=== PATIENT | male | born 1970 | race Caucasian/White ===

== ENCOUNTER 2020-02-08 14:39 | Inpatient (IN) | payer OTHER ==
--- NOTE | 2020-02-08 15:32 | Event Note ---
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 Previously when he was taking diuretics he reports having some hypokalemia and so he was evaluated again yesterday for hypokalemia due to him starting this new diagnosis and he was advised today that his potassium was critical at 2.4 This initial assessment/diagnostic orders/clinical plan/treatment(s) is/are subject to change based on patients health status, clinical progression and re- assessment by fellow clinical providers in the ED. Further treatment and workup at subsequent clinical providers discretion. Patient/guardian urged not to elope from the ED as their condition may be serious if not clinically assessed and managed. Initial orders include:
[2020-02-08 17:09] LABS: BUN/Creatinine Ratio 23; Blood Urea Nitrogen 18 mg/dL (9-20); Calcium 10.2 mg/dL (8.4-10.2); Hemolysis Index 6
[2020-02-08] MEDS ORDERED: POTASSIUM CHLORIDE ER 20 MEQ TAB PO ONE ×2 (17:41→23:41)
--- NOTE | 2020-02-08 17:48 | Emergency Department Report ---
ED General Adult HPI - General Chief complaint: Recheck/Abnormal Lab/Rx Stated complaint: LOW POTASSIUM Time Seen by Provider: 02/08/20 17:34 Source: patient Mode of arrival: Ambulatory Limitations: No Limitations - History of Present Illness Initial comments: Patient is 49 years old male with history of hypertension. Patient received a call from his primary care physician stating that his potassium is 2.4 and he asked him to come to the ER. Patient currently denying any symptoms. Patient stated that he was taking amlodipine 5 mg and losartan however his primary doctor changed his losartan to losartan with chlorothiazide. Patient currently denying any chest pain or shortness of breath. No weakness numbness or tingling sensation. Severity scale (0 -10): 0 - Related Data Previous Rx's Medication Instructions Recorded Last Taken Type amLODIPine 5 mg PO DAILY #30 tab 12/22/19 Unknown Rx Allergies Allergy/AdvReac Type Severity Reaction Status Date / Time No Known Allergies Allergy Unverified 12/22/19 04:07 ED Review of Systems ROS: Stated complaint: LOW POTASSIUM Other details as noted in HPI Comment: All other systems reviewed and negative Constitutional: denies: chills, fever Respiratory: denies: cough, shortness of breath, SOB with exertion Cardiovascular: denies: chest pain, palpitations Gastrointestinal: denies: abdominal pain, nausea, vomiting, diarrhea, constipation, hematemesis, melena, hematochezia Musculoskeletal: denies: back pain Neurological: denies: headache, weakness, numbness, paresthesias, confusion, abnormal gait ED Past Medical Hx - Past Medical History Previous Medical History?: No Hx Hypertension: Yes - Social History Smoking Status: Never Smoker Substance Use Type: None - Medications Home Medications: Home Medications Medication Instructions Recorded Confirmed Last Taken Type amLODIPine 5 mg PO DAILY #30 tab 12/22/19 Unknown Rx ED Physical Exam - General Limitations: No Limitations General appearance: alert, in no apparent distress - Head Head exam: Present: atraumatic, normocephalic, normal inspection - Eye Eye exam: Present: normal appearance, PERRL - ENT ENT exam: Present: normal exam, normal orophraynx, mucous membranes moist - Neck Neck exam: Present: normal inspection, full ROM. Absent: tenderness, m eningismus, lymphadenopathy, thyromegaly - Respiratory Respiratory exam: Present: normal lung sounds bilaterally - Cardiovascular Cardiovascular Exam: Present: regular rate, normal rhythm, normal heart sounds - GI/Abdominal GI/Abdominal exam: Present: soft, normal bowel sounds. Absent: distended, tenderness, guarding, rebound, rigid, organomegaly, mass, bruit, pulsatile mass, hernia - Extremities Exam Extremities exam: Present: normal inspection, full ROM, normal capillary refill. Absent: pedal edema, calf tenderness - Back Exam Back exam: Present: normal inspection, full ROM. Absent: CVA tenderness (R), CVA tenderness (L) - Neurological Exam Neurological exam: Present: alert, oriented X3, CN II-XII intact, normal gait, reflexes normal. Absent: motor sensory deficit - Psychiatric Psychiatric exam: Present: normal mood - Skin Skin exam: Present: warm, intact, normal color ED Course Vital Signs 02/08/20 02/08/20 02/08/20 14:55 17:30 19:15 Temperature 98.1 F 97.7 F Pulse Rate 84 78 74 Respiratory 16 18 15 Rate Blood Pressure Blood Pressure 151/97 130/74 137/78 [Right] O2 Sat by Pulse 94 97 98 Oximetry 02/08/20 02/08/20 02/08/20 19:31 20:00 21:00 Temperature Pulse Rate 76 71 73 Respiratory 21 Rate Blood Pressure 137/78 136/78 133/73 Blood Pressure [Right] O2 Sat by Pulse 95 99 97 Oximetry 02/08/20 02/08/20 02/08/20 21:31 21:45 22:15 Temperature Pulse Rate 72 73 76 Respiratory 17 18 19 Rate Blood Pressure 133/73 133/73 130/78 Blood Pressure [Right] O2 Sat by Pulse 96 97 95 Oximetry 02/08/20 02/08/20 02/08/20 22:31 22:45 23:00 Temperature Pulse Rate 79 75 73 Respiratory 19 18 17 Rate Blood Pressure 130/78 130/78 137/92 Blood Pressure [Right] O2 Sat by Pulse 95 94 95 Oximetry 02/08/20 23:15 Temperature Pulse Rate 72 Respiratory 20 Rate Blood Pressure 137/92 Blood Pressure [Right] O2 Sat by Pulse 96 Oximetry ED Medical Decision Making - Lab Data Result diagrams: 02/08/20 21:52 - EKG Data -: EKG Interpreted by Nv EKG shows normal: sinus rhythm Rate: normal - EKG Data Interpretation: no acute changes - Medical Decision Making Patient is 49 years old male with history of hypertension. Patient received a call from his primary care physician stating that his potassium is 2.4 and he asked him to come to the ER. Patient currently denying any symptoms. Patient stated that he was taking amlodipine 5 mg and losartan however his primary doctor changed his losartan to losartan with chlorothiazide. Patient currently denying any chest pain or shortness of breath. No weakness numbness or tingling sensation. Patient potassium is 2.3. Patient received potassium 20 mEq IV and 40 mEq p.o. however repeat potassium showed a 2.6. Patient will need to be admitted to the hospital for potassium replacement. I discussed the patient with Dr. Cherry, he agreed to admit the patient to medical service for further management. Critical Care Time: Yes Critical care time in (mins) excluding proc time.: 30 Critical care attestation.: If time is entered above; I have spent that time in minutes in the direct care of this critically ill patient, excluding procedure time. ED Disposition Clinical Impression: Acute hypokalemia Disposition: -09 OP ADMIT IP TO THIS HOSP Is pt being admited?: Yes Condition: Stable
[2020-02-08] MEDS: POTASSIUM CHLORIDE 10 MEQ 10 MEQ/100 ML BAG IV SCH ×2 (17:58→19:34)
[2020-02-08] MEDS ORDERED: MAGNESIUM HYDROXIDE (MOM) ORAL LIQD UDC PO PRN (23:53)
[2020-02-08] MEDS ORDERED: ONDANSETRON 4 MG/2 ML INJ IV PRN (23:53)
--- NOTE | 2020-02-09 00:04 | History and Physical Report ---
History of Present Illness Date of examination: 02/08/20 Date of admission: 02/08/2020 Chief complaint: Abnormal labs. History of present illness: 49-year-old male with known history of hypertension was sent to the emergency room today from his primary care physician's office for low potassium level of 2.4. Patient's medication was recently changed from amlodipine and losartan to chlorothiazide and losartan. He denies any chest pain or shortness of breath, no nausea or vomiting, no diarrhea, no headache or dizziness, no fever or chills, no hematuria or dysuria. He denies any weakness or tingling sensation. Upon arrival in the emergency room repeat potassium level was about 2.3 and patient is being admitted for hypokalemia. Past History Past Medical History: hypertension Past Surgical History: No surgical history Social history: no significant social history Family history: no significant family history Medications and Allergies Allergies Allergy/AdvReac Type Severity Reaction Status Date / Time No Known Allergies Allergy Unverified 12/22/19 04:07 Home Medications Medication Instructions Recorded Confirmed Last Taken Type amLODIPine 5 mg PO DAILY #30 tab 12/22/19 Unknown Rx Active Meds: Active Medications Acetaminophen (Tylenol) 650 mg PO Q4H PRN PRN Reason: Pain MILD(1-3)/Fever >100.5/IVEY Enoxaparin Sodium (Enoxaparin) 40 mg SUB-Q QDAY@2200 [facility]; Protocol Potassium Chloride (Kcl 10meq/100ml) 10 meq in 100 mls @ 100 mls/hr IV Q1H [facility] Stop: 02/09/20 01:44 Magnesium Hydroxide (Milk Of Magnesia) 30 ml PO Q4H PRN PRN Reason: Constipation Ondansetron HCl (Zofran) 4 mg IV Q8H PRN PRN Reason: Nausea And Vomiting Sodium Chloride (Sodium Chloride Flush Syringe 10 Ml) 10 ml IV BID [facility] Sodium Chloride (Sodium Chloride Flush Syringe 10 Ml) 10 ml IV PRN PRN PRN Reason: LINE FLUSH Review of Systems Constitutional: no fever, no chills Ears, nose, mouth and throat: no nasal congestion, no sore throat Cardiovascular: no chest pain, no palpitations Respiratory: no cough, no shortness of breath Gastrointestinal: no abdominal pain, no nausea, no vomiting, no diarrhea Genitourinary Male: no dysuria, no hematuria, no nocturia Musculoskeletal: no neck pain, no low back pain Integumentary: no rash, no pruritis Neurological: no headaches, no confusion Psychiatric: no anxiety, no depression Exam - Constitutional Vitals: Temp Pulse Resp BP Pulse Ox 97.7 F 72 20 137/92 96 02/08/20 19:15 02/08/20 23:15 02/08/20 23:15 02/08/20 23:15 02/08/20 23:15 General appearance: Present: no acute distress, well-nourished - EENT Eyes: Present: PERRL, EOM intact. Absent: scleral icterus ENT: hearing intact, clear oral mucosa, dentition normal - Neck Neck: Present: supple, normal ROM - Respiratory Respiratory effort: normal Respiratory: bilateral: CTA - Cardiovascular Rhythm: regular Heart Sounds: Present: S1 & S2. Absent: gallop, systolic murmur, diastolic murmur, rub - Extremities Extremities: no ischemia, pulses intact, pulses symmetrical, No edema, Full ROM Peripheral Pulses: within normal limits - Abdominal General gastrointestinal: Present: soft, non-tender, non-distended, normal bowel sounds. Absent: mass - Integumentary Integumentary: Present: clear, warm, dry - Musculoskeletal Musculoskeletal: strength equal bilaterally - Psychiatric Psychiatric: appropriate mood/affect, intact judgment & insight, memory intact, cooperative - Neurologic Neurologic: CNII-XII intact, no focal deficits, moves all extremities Results - Labs CBC & Chem 7: 02/08/20 21:52 Labs: Abnormal lab results 02/08/20 02/08/20 Range/Units 15:44 21:52 Potassium 2.3 L* 2.6 L* (3.6-5.0) mmol/L Chloride 89.5 L (98-107) mmol/L Carbon Dioxide 39 H (22-30) mmol/L Assessment and Plan - Patient Problems (1) Acute hypokalemia Current Visit: Yes Status: Acute Plan to address problem: Potassium will be repleted and will monitor chemistry. (2) Hypertension Current Visit: Yes Status: Acute Plan to address problem: We will resume routine antihypertensive medications and monitor vital signs closely. (3) DVT prophylaxis Current Visit: Yes Status: Acute Plan to address problem: Patient placed on subcutaneous lovenox. (4) Full code status Current Visit: Yes Status: Acute
[2020-02-09] MEDS: POTASSIUM CHLORIDE 10 MEQ 10 MEQ/100 ML BAG IV SCH ×4 (00:21→11:09)
[2020-02-09] MEDS ORDERED: SODIUM CHLORIDE 0.9% 500 ML 500 ML IV SCH (01:00)
[2020-02-09] MEDS ORDERED: POTASSIUM CHLORIDE 10 MEQ 10 MEQ/100 ML BAG IV ONE ×2 (01:07→04:42)
[2020-02-09 06:43] LABS: Hematocrit 40.7 % (35.5-45.6); Hemoglobin 14.1 gm/dl (11.8-15.2); Mean Corpuscular HGB Conc 35 % (32-34); Mean Corpuscular Volume 93 fl (84-94); Platelet Count 285 K/mm3 (140-440); Red Blood Count 4.39 M/mm3 (3.65-5.03)
[2020-02-09 06:55] LABS: INR 0.98 (0.87-1.13)
[2020-02-09 06:57] LABS: BUN/Creatinine Ratio 16; Blood Urea Nitrogen 13 mg/dL (9-20); Calcium 8.9 mg/dL (8.4-10.2); Hemolysis Index 3
--- NOTE | 2020-02-09 07:53 | Progress Note ---
Assessment and Plan Assessment and plan: --Acute hypokalemia; Loss Prevention Consultant hypokalemia Replenish with oral and IV KCl Closely monitor electrolytes Check magnesium If no improvement in potassium levels Consult nephrology --History of hypertension; moderate control Resume home antihypertensives, amlodipine, losartan Closely monitor blood pressures --Type 2 diabetes mellitus; Patient is on oral hypoglycemics Metformin and glipizide Accu-Cheks, sliding scale coverage, ADA diet Check A1c, resume oral hypoglycemics as needed --Obesity; BMI 39.5 Advised dietary modification, exercise as tolerated Weight reduction when medically stable Patient verbalized understanding --DVT prophylaxis; Lovenox Closely monitor the patient and adjust the management as needed Plan of care reviewed with the patient and his nurse History Interval history: I have seen and examined the patient at the bedside Patient has persistent hypokalemia Received multiple doses of oral and IV KCl Remains hypokalemic Patient reports that ever since his physician prescribed Diuretics, his potassium has been low Denies any chest pain or shortness of breath Vital signs noted Hospitalist Physical - Constitutional Vitals: Temp Pulse Resp BP Pulse Ox 97.4 F L 67 16 134/79 96 02/09/20 03:38 02/09/20 03:38 02/09/20 03:38 02/09/20 03:38 02/09/20 03:38 General appearance: Present: no acute distress, well-nourished - EENT Eyes: Present: PERRL, EOM intact - Neck Neck: Present: supple, normal ROM - Respiratory Respiratory effort: normal Respiratory: bilateral: diminished, negative: rales, rhonchi, wheezing - Cardiovascular Rhythm: regular Heart Sounds: Present: S1 & S2 - Extremities Extremities: no ischemia, No edema - Abdominal General gastrointestinal: soft, non-tender, non-distended, normal bowel sounds - Integumentary Integumentary: Present: clear, warm - Psychiatric Psychiatric: appropriate mood/affect, cooperative - Neurologic Neurologic: CNII-XII intact, moves all extremities Results - Labs CBC & Chem 7: 02/09/20 04:46 02/09/20 18:22 Labs: Laboratory Last Values WBC 5.0 K/mm3 (4.5-11.0) 02/09/20 04:46 RBC 4.39 M/mm3 (3.65-5.03) 02/09/20 04:46 Hgb 14.1 gm/dl (11.8-15.2) 02/09/20 04:46 Hct 40.7 % (35.5-45.6) 02/09/20 04:46 MCV 93 fl (84-94) 02/09/20 04:46 MCH 32 pg (28-32) 02/09/20 04:46 MCHC 35 % (32-34) H 02/09/20 04:46 RDW 14.0 % (13.2-15.2) 02/09/20 04:46 Plt Count 285 K/mm3 (140-440) 02/09/20 04:46 Lymph % (Auto) Neurology Specialist 02/09/20 04:46 Seg Neutrophils % Neurology Specialist 02/09/20 04:46 PT 13.2 Sec. (12.2-14.9) 02/09/20 04:46 INR 0.98 (0.87-1.13) 02/09/20 04:46 Sodium 138 mmol/L (137-145) 02/09/20 04:46 Potassium 2.2 mmol/L (3.6-5.0) L* 02/09/20 04:46 Chloride 91.6 mmol/L (98-107) L 02/09/20 04:46 Carbon Dioxide 37 mmol/L (22-30) H 02/09/20 04:46 Anion Gap 12 mmol/L 02/09/20 04:46 BUN 13 mg/dL (9-20) 02/09/20 04:46 Creatinine 0.8 mg/dL (0.8-1.3) 02/09/20 04:46 Estimated GFR > 60 ml/min 02/09/20 04:46 BUN/Creatinine Ratio 16 % 02/09/20 04:46 Glucose 198 mg/dL (75-100) H 02/09/20 04:46 Calcium 8.9 mg/dL (8.4-10.2) 02/09/20 04:46 Thapa/IV: IV Catheter Type [Right Upper INT / Saline Lock arm] Active Medications - Current Medications Current Medications: Generic Name Dose Route Start Last Admin Trade Name Freq PRN Reason Stop Dose Admin Acetaminophen 650 mg 02/08/20 23:53 Tylenol PO Q4H PRN Pain MILD(1-3)/Fever >100.5/IVEY Enoxaparin Sodium 40 mg 02/09/20 22:00 Enoxaparin SUB-Q QDAY@2200 [facility] Protocol Potassium Chloride 10 meq in 100 mls @ 100 mls/hr 02/09/20 08:00 Kcl 10meq/100ml IV 02/09/20 09:59 Q1H [facility] Insulin Human Lispro 0 unit 02/09/20 08:30 Humalog SUB-Q ACHS [facility] Protocol Magnesium Hydroxide 30 ml 02/08/20 23:53 Milk Of Magnesia PO Q4H PRN Constipation Ondansetron HCl 4 mg 02/08/20 23:53 Zofran IV Q8H PRN Nausea And Vomiting Potassium Chloride 40 meq 02/09/20 08:00 K-Dur PO 02/09/20 11:01 Q3H [facility] Sodium Chloride 10 ml 02/09/20 10:00 Sodium Chloride Flush Syringe 10 Ml IV BID [facility] Sodium Chloride 10 ml 02/08/20 23:53 Sodium Chloride Flush Syringe 10 Ml IV PRN PRN LINE FLUSH
[2020-02-09 08:01] LABS: Band Neutrophils # (Manual) 0.1 K/mm3; Basophils % (Manual) 0 % (0.0-1.8); Platelet Estimate Consistent w Auto; RBC Morphology Normal; Total Cells Counted 100
[2020-02-09] MEDS: INSULIN LISPRO 100 UNIT/ML VIAL 3 mL SUB-Q SCH ×4 (10:11→21:32)
[2020-02-09] MEDS: POTASSIUM CHLORIDE ER 20 MEQ TAB PO SCH ×2 (10:17→12:36)
[2020-02-09 11:14] LABS: Alanine Aminotransferase 26 units/L (7-56); Albumin 4.1 g/dL (3.9-5)
[2020-02-09 11:25] LABS: Bilirubin,Direct < 0.2 mg/dL (0-0.2)
[2020-02-09] MEDS ORDERED: FLU VACC QUAD 2020-2021 (6 months +)/PF 60 0.5 ML SYRINGE IM ONE (12:00)
[2020-02-09] MEDS: ACETAMINOPHEN 325 MG TAB PO PRN (12:36)
[2020-02-09] MEDS ORDERED: MAGNESIUM SULFATE 4 GM/100 ML BAG IV ONE (15:30)
[2020-02-09] MEDS ORDERED: POTASSIUM CHLORIDE ER 20 MEQ TAB PO ONE ×2 (16:46→22:00)
[2020-02-09] MEDS: ENOXAPARIN 40 MG/0.4 ML INJ SUB-Q SCH (21:32)
[2020-02-10] MEDS: POTASSIUM CHLORIDE ER 20 MEQ TAB PO SCH (05:12)
[2020-02-10 06:16] LABS: BUN/Creatinine Ratio 16; Blood Urea Nitrogen 11 mg/dL (9-20); Calcium 8.6 mg/dL (8.4-10.2); Chol/HDL Ratio 2.45 %; HDL Cholesterol 57 mg/dL (40-59); Hemolysis Index 5; LDL Cholesterol,Direct 75 mg/dL (50-130)
[2020-02-10] MEDS ORDERED: POTASSIUM CHLORIDE ER 20 MEQ TAB PO ONE ×2 (07:30→19:30)
--- NOTE | 2020-02-10 08:46 | Progress Note ---
Assessment and Plan Assessment and plan: --Persistent hypokalemia; Replenish with oral and IV KCl Check urine sodium levels Nephrology consult with Dr Tamez Closely monitor electrolytes Check magnesium --History of hypertension; moderate control Resume home antihypertensives, amlodipine, losartan Closely monitor blood pressures --Type 2 diabetes mellitus; Patient is on oral hypoglycemics Metformin and glipizide Accu-Cheks, sliding scale coverage, ADA diet Check A1c, resume oral hypoglycemics as needed --Obesity; BMI 39.5 Advised dietary modification, exercise as tolerated Weight reduction when medically stable Patient verbalized understanding --DVT prophylaxis; Lovenox Closely monitor the patient and adjust the management as needed Plan of care reviewed with the patient and his nurse History Interval history: Seen and examined the patient at the bedside this morning Patient's chart and medications reviewed Patient has persistent hypokalemia Potassium level this morning Hospitalist Physical - Constitutional Vitals: Temp Pulse Resp BP Pulse Ox 98.5 F 60 20 128/82 95 02/10/20 07:30 02/10/20 07:30 02/10/20 07:30 02/10/20 07:30 02/10/20 07:30 General appearance: Present: no acute distress, well-nourished, obese - EENT Eyes: Present: PERRL, EOM intact - Neck Neck: Present: supple, normal ROM - Respiratory Respiratory effort: normal Respiratory: bilateral: diminished, negative: rales, rhonchi, wheezing - Cardiovascular Rhythm: regular Heart Sounds: Present: S1 & S2 - Extremities Extremities: no ischemia, No edema - Abdominal General gastrointestinal: soft, non-tender, non-distended, normal bowel sounds - Integumentary Integumentary: Present: clear, warm - Psychiatric Psychiatric: appropriate mood/affect, cooperative - Neurologic Neurologic: moves all extremities Results - Labs CBC & Chem 7: 02/09/20 04:46 02/11/20 19:04 Labs: Laboratory Last Values WBC 5.0 K/mm3 (4.5-11.0) 02/09/20 04:46 RBC 4.39 M/mm3 (3.65-5.03) 02/09/20 04:46 Hgb 14.1 gm/dl (11.8-15.2) 02/09/20 04:46 Hct 40.7 % (35.5-45.6) 02/09/20 04:46 MCV 93 fl (84-94) 02/09/20 04:46 MCH 32 pg (28-32) 02/09/20 04:46 MCHC 35 % (32-34) H 02/09/20 04:46 RDW 14.0 % (13.2-15.2) 02/09/20 04:46 Plt Count 285 K/mm3 (140-440) 02/09/20 04:46 Lymph % (Auto) Security Control Room Officer 02/09/20 04:46 Add Manual Diff Complete 02/09/20 04:46 Total Counted 100 02/09/20 04:46 Seg Neutrophils % Security Control Room Officer 02/09/20 04:46 Seg Neuts % (Manual) 51.0 % (40.0-70.0) 02/09/20 04:46 Band Neutrophils % 1.0 % 02/09/20 04:46 Lymphocytes % (Manual) 38.0 % (13.4-35.0) H 02/09/20 04:46 Reactive Lymphs % (Man) 0 % 02/09/20 04:46 Monocytes % (Manual) 8.0 % (0.0-7.3) H 02/09/20 04:46 Eosinophils % (Manual) 2.0 % (0.0-4.3) 02/09/20 04:46 Basophils % (Manual) 0 % (0.0-1.8) 02/09/20 04:46 Metamyelocytes % 0 % 02/09/20 04:46 Myelocytes % 0 % 02/09/20 04:46 Promyelocytes % 0 % 02/09/20 04:46 Blast Cells % 0 % 02/09/20 04:46 Nucleated RBC % Not Reportable 02/09/20 04:46 Seg Neutrophils # Man 2.6 K/mm3 (1.8-7.7) 02/09/20 04:46 Band Neutrophils # 0.1 K/mm3 02/09/20 04:46 Lymphocytes # (Manual) 1.9 K/mm3 (1.2-5.4) 02/09/20 04:46 Abs React Lymphs (Man) 0.0 K/mm3 02/09/20 04:46 Monocytes # (Manual) 0.4 K/mm3 (0.0-0.8) 02/09/20 04:46 Eosinophils # (Manual) 0.1 K/mm3 (0.0-0.4) 02/09/20 04:46 Basophils # (Manual) 0.0 K/mm3 (0.0-0.1) 02/09/20 04:46 Metamyelocytes # 0.0 K/mm3 02/09/20 04:46 Myelocytes # 0.0 K/mm3 02/09/20 04:46 Promyelocytes # 0.0 K/mm3 02/09/20 04:46 Blast Cells # 0.0 K/mm3 02/09/20 04:46 WBC Morphology Not Reportable 02/09/20 04:46 Hypersegmented Neuts Not Reportable 02/09/20 04:46 Hyposegmented Neuts Not Reportable 02/09/20 04:46 Hypogranular Neuts Not Reportable 02/09/20 04:46 Smudge Cells Not Reportable 02/09/20 04:46 Toxic Granulation Not Reportable 02/09/20 04:46 Toxic Vacuolation Not Reportable 02/09/20 04:46 Dohle Bodies Not Reportable 02/09/20 04:46 Pelger-Huet Anomaly Not Reportable 02/09/20 04:46 Jumana Rods Not Reportable 02/09/20 04:46 Platelet Estimate Consistent w auto 02/09/20 04:46 Clumped Platelets Not Reportable 02/09/20 04:46 Plt Clumps, EDTA Not Reportable 02/09/20 04:46 Large Platelets Not Reportable 02/09/20 04:46 Giant Platelets Not Reportable 02/09/20 04:46 Platelet Satelliting Not Reportable 02/09/20 04:46 Plt Morphology Comment Not Reportable 02/09/20 04:46 RBC Morphology Normal 02/09/20 04:46 Dimorphic RBCs Not Reportable 02/09/20 04:46 Polychromasia Not Reportable 02/09/20 04:46 Hypochromasia Not Reportable 02/09/20 04:46 Poikilocytosis Not Reportable 02/09/20 04:46 Anisocytosis Not Reportable 02/09/20 04:46 Microcytosis Not Reportable 02/09/20 04:46 Macrocytosis Not Reportable 02/09/20 04:46 Spherocytes Not Reportable 02/09/20 04:46 Pappenheimer Bodies Not Reportable 02/09/20 04:46 Sickle Cells Not Reportable 02/09/20 04:46 Target Cells Not Reportable 02/09/20 04:46 Tear Drop Cells Not Reportable 02/09/20 04:46 Ovalocytes Not Reportable 02/09/20 04:46 Helmet Cells Not Reportable 02/09/20 04:46 [place] Bodies Not Reportable 02/09/20 04:46 [place] Rings Not Reportable 02/09/20 04:46 [place] Cells Not Reportable 02/09/20 04:46 Bite Cells Not Reportable 02/09/20 04:46 Crenated Cell Not Reportable 02/09/20 04:46 Elliptocytes Not Reportable 02/09/20 04:46 Acanthocytes (Spur) Not Reportable 02/09/20 04:46 Rouleaux Not Reportable 02/09/20 04:46 Hemoglobin C Crystals Not Reportable 02/09/20 04:46 Schistocytes Not Reportable 02/09/20 04:46 Malaria parasites Not Reportable 02/09/20 04:46 [place] Bodies Not Reportable 02/09/20 04:46 Hem Pathologist Commnt No 02/09/20 04:46 PT 13.2 Sec. (12.2-14.9) 02/09/20 04:46 INR 0.98 (0.87-1.13) 02/09/20 04:46 Sodium 142 mmol/L (137-145) 02/10/20 05:23 Potassium 2.7 mmol/L (3.6-5.0) L* 02/10/20 05:23 Chloride 97.2 mmol/L (98-107) L 02/10/20 05:23 Carbon Dioxide 36 mmol/L (22-30) H 02/10/20 05:23 Anion Gap 12 mmol/L 02/10/20 05:23 BUN 11 mg/dL (9-20) 02/10/20 05:23 Creatinine 0.7 mg/dL (0.8-1.3) L 02/10/20 05:23 Estimated GFR > 60 ml/min 02/10/20 05:23 BUN/Creatinine Ratio 16 % 02/10/20 05:23 Glucose 145 mg/dL (75-100) H 02/10/20 05:23 POC Glucose 149 mg/dL (70-105) H 02/10/20 08:13 Hemoglobin A1c 7.0 % (4-6) H 02/09/20 09:26 Calcium 8.6 mg/dL (8.4-10.2) 02/10/20 05:23 Magnesium 2.00 mg/dL (1.7-2.3) 02/10/20 05:23 Total Bilirubin 0.50 mg/dL (0.1-1.2) 02/09/20 09:26 Direct Bilirubin < 0.2 mg/dL (0-0.2) 02/09/20 09:26 Indirect Bilirubin 0.3 mg/dL 02/09/20 09:26 AST 18 units/L (5-40) 02/09/20 09:26 ALT 26 units/L (7-56) 02/09/20 09:26 Alkaline Phosphatase 70 units/L (35-129) 02/09/20 09:26 Total Protein 7.2 g/dL (6.3-8.2) 02/09/20 09:26 Albumin 4.1 g/dL (3.9-5) 02/09/20 09:26 Albumin/Globulin Ratio 1.3 % 02/09/20 09:26 Triglycerides 123 mg/dL (2-149) 02/10/20 05:23 Cholesterol 140 mg/dL (50-199) 02/10/20 05:23 LDL Cholesterol Direct 75 mg/dL (50-130) 02/10/20 05:23 HDL Cholesterol 57 mg/dL (40-59) 02/10/20 05:23 Cholesterol/HDL Ratio 2.45 % 02/10/20 05:23 Thapa/IV: Voiding Method Toilet IV Catheter Type [Right Upper INT / Saline Lock arm] Active Medications - Current Medications Current Medications: Generic Name Dose Route Start Last Admin Trade Name Freq PRN Reason Stop Dose Admin Acetaminophen 650 mg 02/08/20 23:53 02/09/20 12:36 Tylenol PO 650 mg Q4H PRN Administration Pain MILD(1-3)/Fever >100.5/IVEY Enoxaparin Sodium 40 mg 02/09/20 22:00 02/09/20 21:32 Enoxaparin SUB-Q 40 mg QDAY@2200 [facility] [place] Administration Protocol Insulin Human Lispro 0 unit 02/09/20 08:30 02/09/20 21:32 Humalog SUB-Q 2 unit ACHS [facility] Administration Protocol Magnesium Hydroxide 30 ml 02/08/20 23:53 Milk Of Magnesia PO Q4H PRN Constipation Ondansetron HCl 4 mg 02/08/20 23:53 Zofran IV Q8H PRN Nausea And Vomiting Potassium Chloride 40 meq 02/10/20 02:00 02/10/20 05:12 K-Dur PO 40 meq QDAY [facility] Administration Sodium Chloride 10 ml 02/09/20 10:00 02/09/20 21:32 Sodium Chloride Flush Syringe 10 Ml IV 10 ml BID [facility] Administration Sodium Chloride 10 ml 02/08/20 23:53 Sodium Chloride Flush Syringe 10 Ml IV PRN PRN LINE FLUSH
[2020-02-10] MEDS: INSULIN LISPRO 100 UNIT/ML VIAL 3 mL SUB-Q SCH ×4 (09:32→21:40)
--- NOTE | 2020-02-10 11:50 | Consultation ---
History of Present Illness - Reason for Consult Consult date: 02/10/20 hypokalemia - History of Present Illness History obtained w/ assistance of hospital Language Line - Library Specialist [id number] Mr. Devlin is a 49yo gentleman with hypertension and hx of hypokalemia who presented to the ED upon the direction of his PCP due to abnormal labs. He reports a history of hypokalemia in 2017 requiring hospitalization. He reports that he was prescribed KCl pills for the next two years but eventually these were discontinued as his K remained normal. He recently established care with a new PCP appx 1 week ago and was prescribed Edarbyclor He reports a dramatic increase in urinary frequency. He returned for follow up/labs. Labs returned and was notable for K 2.4. Patient was contacted and advised to go to the ED. Mr. Devlin denies palpitations, muscle spasms/cramps. Past History Past Medical History: hypertension Past Surgical History: No surgical history Social history: no significant social history Family history: no significant family history Medications and Allergies Allergies Allergy/AdvReac Type Severity Reaction Status Date / Time No Known Allergies Allergy Unverified 12/22/19 04:07 Home Medications Medication Instructions Recorded Confirmed Last Taken Type amLODIPine 5 mg PO DAILY #30 tab 12/22/19 02/09/20 Unknown Rx Losartan [Cozaar] 100 mg PO QDAY 02/09/20 02/09/20 02/08/20 History Metformin HCl [metFORMIN] 1,000 mg PO BID 02/09/20 02/09/20 1 Day Ago History ~02/08/20 NIFEdipine XL [Procardia Xl] 60 mg PO Q12HR 02/09/20 02/09/20 02/08/20 History glipiZIDE 10 mg PO BID 02/09/20 02/09/20 02/08/20 History Active Meds: Active Medications Acetaminophen (Tylenol) 650 mg PO Q4H PRN PRN Reason: Pain MILD(1-3)/Fever >100.5/IVEY Last Admin: 02/09/20 12:36 Dose: 650 mg Documented by: Enoxaparin Sodium (Enoxaparin) 40 mg SUB-Q QDAY@2200 [facility]; Protocol Last Admin: 02/09/20 21:32 Dose: 40 mg Documented by: Insulin Human Lispro (Humalog) 0 unit SUB-Q ACHS [facility]; Protocol Last Admin: 02/10/20 09:32 Dose: Not Given Documented by: Magnesium Hydroxide (Milk Of Magnesia) 30 ml PO Q4H PRN PRN Reason: Constipation Ondansetron HCl (Zofran) 4 mg IV Q8H PRN PRN Reason: Nausea And Vomiting Potassium Chloride (K-Dur) 40 meq PO QDAY [facility] Last Admin: 02/10/20 05:12 Dose: 40 meq Documented by: Sodium Chloride (Sodium Chloride Flush Syringe 10 Ml) 10 ml IV BID [facility] Last Admin: 02/10/20 09:32 Dose: 10 ml Documented by: Sodium Chloride (Sodium Chloride Flush Syringe 10 Ml) 10 ml IV PRN PRN PRN Reason: LINE FLUSH Review of Systems All systems: negative Exam - Vital Signs Vital signs: Vital Signs Temp Pulse Resp BP Pulse Ox 98.1 F 84 16 151/97 94 02/08/20 14:55 02/08/20 14:55 02/08/20 14:55 02/08/20 14:55 02/08/20 14:55 - General Appearance General appearance: well-developed, well-nourished EENT: ATNC Respiratory: Clear to Ascultation Heart: regular, S1S2 Gastrointestinal: Present: normal Integumentary: no rash, warm and dry Neurologic: no focal deficit, alert and oriented x3 Musculoskeletal: Present: other (no edema) Psychiatric: cooperative Results - Lab Results 02/09/20 04:46 02/10/20 16:02 Most recent lab results Calcium 8.6 mg/dL (8.4-10.2) 02/10/20 05:23 Magnesium 2.00 mg/dL (1.7-2.3) 02/10/20 05:23 Assessment and Plan Impression: * Hypokalemia -likely secondary to thiazide diuretic; rule out hyperaldosteronism vs Bartter syndrome vs Gitelman syndrome * Metabolic alkalosis * Hypomagnesemia * Hypertension * Type II diabetes mellitus Plan: * K repletion in progress * Repeat K this afternoon * Note order for 24h urine K. Will also add 24h urine Ca (will be high in Bartter and low in Gitelman) * Will obtain Mick:Renin ratio * Would benefit from K sparing diuretic * AM labs ordered
[2020-02-10] MEDS: ENOXAPARIN 40 MG/0.4 ML INJ SUB-Q SCH (21:40)
[2020-02-10] MEDS: ACETAMINOPHEN 325 MG TAB PO PRN (21:54)
[2020-02-11 05:37] LABS: Blood Urea Nitrogen 13 mg/dL (9-20); Calcium 8.3 mg/dL (8.4-10.2); Hemolysis Index 6
[2020-02-11 05:38] LABS: BUN/Creatinine Ratio 19
[2020-02-11] MEDS ORDERED: POTASSIUM CHLORIDE ER 20 MEQ TAB PO ONE ×2 (06:00→21:15)
[2020-02-11] MEDS: INSULIN LISPRO 100 UNIT/ML VIAL 3 mL SUB-Q SCH ×4 (09:12→21:15)
[2020-02-11] MEDS: POTASSIUM CHLORIDE ER 20 MEQ TAB PO SCH (09:12)
[2020-02-11 11:53] LABS: Calcium, Urine 6.6 mg/dL (6.8-21.3); Chloride, Urine 77.2 mmolL (110-250); Creatinine,Urine 111.4 mg/dL (0.1-20.0)
[2020-02-11 11:56] LABS: Creatinine 24 Hour,Urine 1.9 (0.8-2.8); Potassium 24 Hour,Urine 166.4 (25-125)
[2020-02-11] MEDS ORDERED: POTASSIUM CHLORIDE ER 20 MEQ TAB PO SCH (13:36)
--- NOTE | 2020-02-11 13:36 | Progress Note ---
Assessment and Plan Assessment and plan: --Persistent hypokalemia; potassium today 2.7 Replenish with oral and IV KCl multiple doses Check urine sodium levels Nephrology Dr. Tamez following Closely monitor electrolytes Check magnesium --History of hypertension; moderate control Resume home antihypertensives, amlodipine, losartan Closely monitor blood pressures --Type 2 diabetes mellitus; Patient is on oral hypoglycemics Metformin and glipizide Accu-Cheks, sliding scale coverage, ADA diet Check A1c, resume oral hypoglycemics as needed --Obesity; BMI 39.5 Advised dietary modification, exercise as tolerated Weight reduction when medically stable Patient verbalized understanding --DVT prophylaxis; Lovenox Closely monitor the patient and adjust the management as needed Plan of care reviewed with the patient and his nurse Brief history; Patient admitted with severe hypokalemia, probably thiazide induced continues to have persistent hypokalemia irrespective of multiple dose of replacement therapy Nephrology following, closely monitor History Interval history: I have seen and examined the patient at the bedside today Patient continues to have persistent hypokalemia Patient has been receiving oral and IV KCl multiple doses However remains hypokalemic Nephrology following Patient has no new complaints Wants to go home Hospitalist Physical - Constitutional Vitals: Temp Pulse Resp BP Pulse Ox 99.3 F 69 18 137/93 93 02/11/20 07:33 02/11/20 07:33 02/11/20 07:33 02/11/20 07:33 02/11/20 07:33 General appearance: Present: no acute distress, well-nourished - EENT Eyes: Present: PERRL, EOM intact - Neck Neck: Present: supple, normal ROM - Respiratory Respiratory effort: normal Respiratory: bilateral: diminished, negative: rales, rhonchi, wheezing - Cardiovascular Rhythm: regular Heart Sounds: Present: S1 & S2 - Extremities Extremities: no ischemia, No edema - Abdominal General gastrointestinal: soft, non-tender, non-distended, normal bowel sounds - Integumentary Integumentary: Present: clear, warm - Psychiatric Psychiatric: appropriate mood/affect, cooperative - Neurologic Neurologic: moves all extremities Results - Labs CBC & Chem 7: 02/09/20 04:46 02/11/20 19:04 Labs: Laboratory Last Values WBC 5.0 K/mm3 (4.5-11.0) 02/09/20 04:46 RBC 4.39 M/mm3 (3.65-5.03) 02/09/20 04:46 Hgb 14.1 gm/dl (11.8-15.2) 02/09/20 04:46 Hct 40.7 % (35.5-45.6) 02/09/20 04:46 MCV 93 fl (84-94) 02/09/20 04:46 MCH 32 pg (28-32) 02/09/20 04:46 MCHC 35 % (32-34) H 02/09/20 04:46 RDW 14.0 % (13.2-15.2) 02/09/20 04:46 Plt Count 285 K/mm3 (140-440) 02/09/20 04:46 Lymph % (Auto) Sprinkler Worker 02/09/20 04:46 Add Manual Diff Complete 02/09/20 04:46 Total Counted 100 02/09/20 04:46 Seg Neutrophils % Sprinkler Worker 02/09/20 04:46 Seg Neuts % (Manual) 51.0 % (40.0-70.0) 02/09/20 04:46 Band Neutrophils % 1.0 % 02/09/20 04:46 Lymphocytes % (Manual) 38.0 % (13.4-35.0) H 02/09/20 04:46 Reactive Lymphs % (Man) 0 % 02/09/20 04:46 Monocytes % (Manual) 8.0 % (0.0-7.3) H 02/09/20 04:46 Eosinophils % (Manual) 2.0 % (0.0-4.3) 02/09/20 04:46 Basophils % (Manual) 0 % (0.0-1.8) 02/09/20 04:46 Metamyelocytes % 0 % 02/09/20 04:46 Myelocytes % 0 % 02/09/20 04:46 Promyelocytes % 0 % 02/09/20 04:46 Blast Cells % 0 % 02/09/20 04:46 Nucleated RBC % Not Reportable 02/09/20 04:46 Seg Neutrophils # Man 2.6 K/mm3 (1.8-7.7) 02/09/20 04:46 Band Neutrophils # 0.1 K/mm3 02/09/20 04:46 Lymphocytes # (Manual) 1.9 K/mm3 (1.2-5.4) 02/09/20 04:46 Abs React Lymphs (Man) 0.0 K/mm3 02/09/20 04:46 Monocytes # (Manual) 0.4 K/mm3 (0.0-0.8) 02/09/20 04:46 Eosinophils # (Manual) 0.1 K/mm3 (0.0-0.4) 02/09/20 04:46 Basophils # (Manual) 0.0 K/mm3 (0.0-0.1) 02/09/20 04:46 Metamyelocytes # 0.0 K/mm3 02/09/20 04:46 Myelocytes # 0.0 K/mm3 02/09/20 04:46 Promyelocytes # 0.0 K/mm3 02/09/20 04:46 Blast Cells # 0.0 K/mm3 02/09/20 04:46 WBC Morphology Not Reportable 02/09/20 04:46 Hypersegmented Neuts Not Reportable 02/09/20 04:46 Hyposegmented Neuts Not Reportable 02/09/20 04:46 Hypogranular Neuts Not Reportable 02/09/20 04:46 Smudge Cells Not Reportable 02/09/20 04:46 Toxic Granulation Not Reportable 02/09/20 04:46 Toxic Vacuolation Not Reportable 02/09/20 04:46 Dohle Bodies Not Reportable 02/09/20 04:46 Pelger-Huet Anomaly Not Reportable 02/09/20 04:46 Jumana Rods Not Reportable 02/09/20 04:46 Platelet Estimate Consistent w auto 02/09/20 04:46 Clumped Platelets Not Reportable 02/09/20 04:46 Plt Clumps, EDTA Not Reportable 02/09/20 04:46 Large Platelets Not Reportable 02/09/20 04:46 Giant Platelets Not Reportable 02/09/20 04:46 Platelet Satelliting Not Reportable 02/09/20 04:46 Plt Morphology Comment Not Reportable 02/09/20 04:46 RBC Morphology Normal 02/09/20 04:46 Dimorphic RBCs Not Reportable 02/09/20 04:46 Polychromasia Not Reportable 02/09/20 04:46 Hypochromasia Not Reportable 02/09/20 04:46 Poikilocytosis Not Reportable 02/09/20 04:46 Anisocytosis Not Reportable 02/09/20 04:46 Microcytosis Not Reportable 02/09/20 04:46 Macrocytosis Not Reportable 02/09/20 04:46 Spherocytes Not Reportable 02/09/20 04:46 Pappenheimer Bodies Not Reportable 02/09/20 04:46 Sickle Cells Not Reportable 02/09/20 04:46 Target Cells Not Reportable 02/09/20 04:46 Tear Drop Cells Not Reportable 02/09/20 04:46 Ovalocytes Not Reportable 02/09/20 04:46 Helmet Cells Not Reportable 02/09/20 04:46 Arrieta-Downs Bodies Not Reportable 02/09/20 04:46 [place] Rings Not Reportable 02/09/20 04:46 Gautam Cells Not Reportable 02/09/20 04:46 Bite Cells Not Reportable 02/09/20 04:46 Crenated Cell Not Reportable 02/09/20 04:46 Elliptocytes Not Reportable 02/09/20 04:46 Acanthocytes (Spur) Not Reportable 02/09/20 04:46 Rouleaux Not Reportable 02/09/20 04:46 Hemoglobin C Crystals Not Reportable 02/09/20 04:46 Schistocytes Not Reportable 02/09/20 04:46 Malaria parasites Not Reportable 02/09/20 04:46 Abdon Bodies Not Reportable 02/09/20 04:46 Hem Pathologist Commnt No 02/09/20 04:46 PT 13.2 Sec. (12.2-14.9) 02/09/20 04:46 INR 0.98 (0.87-1.13) 02/09/20 04:46 Sodium 139 mmol/L (137-145) 02/11/20 04:33 Potassium 2.7 mmol/L (3.6-5.0) L* 02/11/20 04:33 Chloride 97.8 mmol/L (98-107) L 02/11/20 04:33 Carbon Dioxide 35 mmol/L (22-30) H 02/11/20 04:33 Anion Gap 9 mmol/L 02/11/20 04:33 BUN 13 mg/dL (9-20) 02/11/20 04:33 Creatinine 0.7 mg/dL (0.8-1.3) L 02/11/20 04:33 Estimated GFR > 60 ml/min 02/11/20 04:33 BUN/Creatinine Ratio 19 % 02/11/20 04:33 Glucose 144 mg/dL (75-100) H 02/11/20 04:33 POC Glucose 181 mg/dL (70-105) H 02/11/20 12:17 Hemoglobin A1c 7.0 % (4-6) H 02/09/20 09:26 Calcium 8.3 mg/dL (8.4-10.2) L 02/11/20 04:33 Magnesium 1.90 mg/dL (1.7-2.3) 02/11/20 04:33 Total Bilirubin 0.50 mg/dL (0.1-1.2) 02/09/20 09:26 Direct Bilirubin < 0.2 mg/dL (0-0.2) 02/09/20 09:26 Indirect Bilirubin 0.3 mg/dL 02/09/20 09:26 AST 18 units/L (5-40) 02/09/20 09:26 ALT 26 units/L (7-56) 02/09/20 09:26 Alkaline Phosphatase 70 units/L (35-129) 02/09/20 09:26 Total Protein 7.2 g/dL (6.3-8.2) 02/09/20 09:26 Albumin 4.1 g/dL (3.9-5) 02/09/20 09:26 Albumin/Globulin Ratio 1.3 % 02/09/20 09:26 Triglycerides 123 mg/dL (2-149) 02/10/20 05:23 Cholesterol 140 mg/dL (50-199) 02/10/20 05:23 LDL Cholesterol Direct 75 mg/dL (50-130) 02/10/20 05:23 HDL Cholesterol 57 mg/dL (40-59) 02/10/20 05:23 Cholesterol/HDL Ratio 2.45 % 02/10/20 05:23 Urine Total Volume 1750 ml 02/10/20 13:31 Urine Creatinine 111.4 mg/dL (0.1-20.0) H 02/10/20 13:31 Ur Creatinine 24 Hour 1.9 (0.8-2.8) 02/10/20 13:31 Urine Potassium 95.08 mmol/L 02/10/20 13:31 Ur Potassium 24 Hour 166.4 (25-125) H 02/10/20 13:31 Urine Chloride 77.2 mmolL (110-250) L 02/10/20 13:31 Ur Chloride 24 Hour 135.1 (110-250) 02/10/20 13:31 Urine Calcium 6.6 mg/dL (6.8-21.3) L 02/10/20 13:31 Ur Calcium 24 Hr 115.5 02/10/20 13:31 Thapa/IV: Voiding Method Urinal IV Catheter Type [Right Upper INT / Saline Lock arm] Active Medications - Current Medications Current Medications: Generic Name Dose Route Start Last Admin Trade Name Freq PRN Reason Stop Dose Admin Acetaminophen 650 mg 02/08/20 23:53 02/10/20 21:54 Tylenol PO 650 mg Q4H PRN Administration Pain MILD(1-3)/Fever >100.5/IVEY Enoxaparin Sodium 40 mg 02/09/20 22:00 02/10/20 21:40 Enoxaparin SUB-Q 40 mg QDAY@2200 [facility] Administration Protocol Insulin Human Lispro 0 unit 02/09/20 08:30 02/11/20 12:11 Humalog SUB-Q 2 unit ACHS [facility] Administration Protocol Magnesium Hydroxide 30 ml 02/08/20 23:53 Milk Of Magnesia PO Q4H PRN Constipation Ondansetron HCl 4 mg 02/08/20 23:53 Zofran IV Q8H PRN Nausea And Vomiting Potassium Chloride 40 meq 02/10/20 02:00 02/11/20 09:12 K-Dur PO 40 meq QDAY [facility] Administration Sodium Chloride 10 ml 02/09/20 10:00 02/11/20 09:13 Sodium Chloride Flush Syringe 10 Ml IV 10 ml BID [facility] Administration Sodium Chloride 10 ml 02/08/20 23:53 Sodium Chloride Flush Syringe 10 Ml IV PRN PRN LINE FLUSH
[2020-02-11] MEDS: POTASSIUM CHLORIDE 10 MEQ 10 MEQ/100 ML BAG IV SCH ×2 (14:56→16:09)
--- NOTE | 2020-02-11 18:07 | Progress Note ---
Assessment and Plan Impression: * Hypokalemia -likely secondary to thiazide diuretic; rule out hyperaldosteronism vs Bartter syndrome vs Gitelman syndrome * Metabolic alkalosis * Hypomagnesemia * Hypertension * Type II diabetes mellitus Plan: * Will start Aldactone 25mg BID * Continue daily KCl for now * Await pending work up - Urine Ca is low - suggestive of Gitleman syndrome, however given hypertension, should r/o hyperaldosteronism * Await Mick:Renin * AM labs ordered * Hopefully can be discharged within next 24-48h pending Subjective Date of service: 02/11/20 Interval history: Hospital Language Line assists in translating - Digital Project Manager # [id number] Patient has no complaints today - denies muscle spasms, weakness, palpitations. Objective - Vital Signs Vital signs: Vital Signs - 12hr 02/11/20 02/11/20 02/11/20 07:33 12:01 15:26 Temperature 99.3 F 97.6 F Pulse Rate 69 58 L Respiratory 18 18 Rate Blood Pressure 137/93 140/88 161/94 O2 Sat by Pulse 93 98 Oximetry 02/11/20 16:31 Temperature Pulse Rate 77 Respiratory Rate Blood Pressure 161/94 O2 Sat by Pulse Oximetry - General Appearance General appearance: well-developed, well-nourished EENT: ATNC Respiratory: Present: Clear to Ascultation Cardiology: regular, S1S2 Gastrointestinal: normal Integumentary: no rash, warm and dry Neurologic: no focal deficit Musculoskeletal: other (no edema) Psychiatric: cooperative - Lab 02/09/20 04:46 02/11/20 04:33 Most recent lab results Calcium 8.3 mg/dL (8.4-10.2) L 02/11/20 04:33 Magnesium 1.90 mg/dL (1.7-2.3) 02/11/20 04:33 Urine Creatinine 111.4 mg/dL (0.1-20.0) H 02/10/20 13:31 Medications & Allergies - Medications Allergies/Adverse Reactions: Allergies No Known Allergies Allergy (Unverified 12/22/19 04:07) Home Medications: Home Medications Medication Instructions Recorded Confirmed Last Taken Type amLODIPine 5 mg PO DAILY #30 tab 12/22/19 02/09/20 Unknown Rx Losartan [Cozaar] 100 mg PO QDAY 1102/09/20 02/08/20 History Metformin HCl [metFORMIN] 1,000 mg PO BID 02/09/20 02/09/20 1 Day Ago History ~02/08/20 NIFEdipine XL [Procardia Xl] 60 mg PO Q12HR 02/09/20 02/09/20 02/08/20 History glipiZIDE 10 mg PO BID 02/09/20 02/09/20 02/08/20 History Active Medications: Generic Name Dose Route Start Last Admin Trade Name Freq PRN Reason Stop Dose Admin Acetaminophen 650 mg 02/08/20 23:53 02/10/20 21:54 Tylenol PO 650 mg Q4H PRN Administration Pain MILD(1-3)/Fever >100.5/IVEY Enoxaparin Sodium 40 mg 02/09/20 22:00 02/10/20 21:40 Enoxaparin SUB-Q 40 mg QDAY@2200 [facility] Administration Protocol Insulin Human Lispro 0 unit 02/09/20 08:30 02/11/20 16:09 Humalog SUB-Q 2 unit ACHS [facility] Administration Protocol Labetalol HCl 10 mg 02/11/20 16:18 02/11/20 16:31 Labetalol IV 10 mg Q4HR PRN Administration bp sys>155 vita>90 Magnesium Hydroxide 30 ml 02/08/20 23:53 Milk Of Magnesia PO Q4H PRN Constipation Ondansetron HCl 4 mg 02/08/20 23:53 Zofran IV Q8H PRN Nausea And Vomiting Potassium Chloride 40 meq 02/10/20 02:00 02/11/20 09:12 K-Dur PO 40 meq QDAY [facility] Administration Sodium Chloride 10 ml 02/09/20 10:00 02/11/20 09:13 Sodium Chloride Flush Syringe 10 Ml IV 10 ml BID [facility] Administration Sodium Chloride 10 ml 02/08/20 23:53 Sodium Chloride Flush Syringe 10 Ml IV PRN PRN LINE FLUSH Spironolactone 25 mg 02/11/20 22:00 Aldactone PO BID [facility]
[2020-02-11] MEDS ORDERED: MAGNESIUM SULFATE 1 GM in SODIUM CHLORIDE 0.9% 50 ML IV ONE (20:44)
[2020-02-11] MEDS: SPIRONOLACTONE 25 MG TAB PO SCH (21:13)
[2020-02-11] MEDS: ENOXAPARIN 40 MG/0.4 ML INJ SUB-Q SCH (21:14)
[2020-02-12 05:40] LABS: Blood Urea Nitrogen 8 mg/dL (9-20); Calcium 8.1 mg/dL (8.4-10.2); Hemolysis Index 13
[2020-02-12 05:42] LABS: BUN/Creatinine Ratio 13
[2020-02-12] MEDS ORDERED: POTASSIUM CHLORIDE ER 20 MEQ TAB PO ONE ×2 (06:15→15:37)
[2020-02-12] MEDS ORDERED: POTASSIUM CHLORIDE 10 MEQ 10 MEQ/100 ML BAG IV ONE (06:30)
[2020-02-12] MEDS: POTASSIUM CHLORIDE ER 20 MEQ TAB PO SCH (10:48)
[2020-02-12] MEDS: SPIRONOLACTONE 25 MG TAB PO SCH ×2 (10:48→22:25)
[2020-02-12] MEDS: INSULIN LISPRO 100 UNIT/ML VIAL 3 mL SUB-Q SCH ×4 (10:49→22:27)
--- NOTE | 2020-02-12 11:35 | Progress Note ---
Assessment and Plan Impression: * Hypokalemia -likely secondary to thiazide diuretic; rule out hyperaldosteronism vs Bartter syndrome vs Gitelman syndrome * Metabolic alkalosis * Hypomagnesemia * Hypertension * Type II diabetes mellitus Plan: * K 2.9 - however, patient received only one dose of Aldactone yesterday * Continue Aldactone 25mg BID * Continue daily KCl for now * Await pending work up; Urine Ca is low - suggestive of Gitleman syndrome, however given hypertension, should r/o hyperaldosteronism especially as BP now well controlled with Aldactone alone * Await Mick:Renin * AM labs ordered * Hopefully can be discharged within next 24-48h pending Subjective Date of service: 02/12/20 Interval history: Hospital Language Line wharf worker - [id number] Patient has no complaints. Reports headache. Otherwise, has no complaints. Objective - Vital Signs Vital signs: Vital Signs - 12hr 02/11/20 02/12/20 02/12/20 23:43 01:00 04:09 Temperature 98.1 F 97.5 F L Pulse Rate 56 L 65 56 L Respiratory 18 18 Rate Blood Pressure 139/81 112/71 O2 Sat by Pulse 97 98 Oximetry 02/12/20 10:00 Temperature Pulse Rate 92 H Respiratory Rate Blood Pressure O2 Sat by Pulse Oximetry - General Appearance General appearance: well-developed, well-nourished EENT: ATNC Respiratory: Present: Clear to Ascultation Cardiology: regular, S1S2 Gastrointestinal: normal, no tenderness, no distended Integumentary: no rash, warm and dry Neurologic: no focal deficit, alert and oriented x3 Psychiatric: cooperative - Lab 02/09/20 04:46 02/12/20 04:28 Most recent lab results Calcium 8.1 mg/dL (8.4-10.2) L 02/12/20 04:28 Magnesium 2.00 mg/dL (1.7-2.3) 02/12/20 04:28 Urine Creatinine 111.4 mg/dL (0.1-20.0) H 02/10/20 13:31 Medications & Allergies - Medications Allergies/Adverse Reactions: Allergies No Known Allergies Allergy (Unverified 12/22/19 04:07) Home Medications: Home Medications Medication Instructions Recorded Confirmed Last Taken Type amLODIPine 5 mg PO DAILY #30 tab 12/22/19 02/09/20 Unknown Rx Losartan [Cozaar] 100 mg PO QDAY 02/09/20 02/09/20 02/08/20 History Metformin HCl [metFORMIN] 1,000 mg PO BID 02/09/20 02/09/20 1 Day Ago History ~02/08/20 NIFEdipine XL [Procardia Xl] 60 mg PO Q12HR 02/09/20 02/09/20 02/08/20 History glipiZIDE 10 mg PO BID 02/09/20 02/09/20 02/08/20 History Active Medications: Generic Name Dose Route Start Last Admin Trade Name Freq PRN Reason Stop Dose Admin Acetaminophen 650 mg 02/08/20 23:53 02/10/20 21:54 Tylenol PO 650 mg Q4H PRN Administration Pain MILD(1-3)/Fever >100.5/IVEY Enoxaparin Sodium 40 mg 02/09/20 22:00 02/11/20 21:14 Enoxaparin SUB-Q 40 mg QDAY@2200 [facility] Administration Protocol Insulin Human Lispro 0 unit 02/09/20 08:30 02/12/20 10:49 Humalog SUB-Q 2 unit ACHS [facility] Administration Protocol Labetalol HCl 10 mg 02/11/20 16:18 02/11/20 16:31 Labetalol IV 10 mg Q4HR PRN Administration bp sys>155 vita>90 Magnesium Hydroxide 30 ml 02/08/20 23:53 Milk Of Magnesia PO Q4H PRN Constipation Ondansetron HCl 4 mg 02/08/20 23:53 Zofran IV Q8H PRN Nausea And Vomiting Potassium Chloride 40 meq 02/10/20 02:00 02/12/20 10:48 K-Dur PO 40 meq QDAY [facility] Administration Sodium Chloride 10 ml 02/09/20 10:00 02/12/20 10:48 Sodium Chloride Flush Syringe 10 Ml IV 10 ml BID [facility] Administration Sodium Chloride 10 ml 02/08/20 23:53 Sodium Chloride Flush Syringe 10 Ml IV PRN PRN LINE FLUSH Spironolactone 25 mg 02/11/20 22:00 02/12/20 10:48 Aldactone PO 25 mg BID [facility] Administration
[2020-02-12] MEDS: ACETAMINOPHEN 325 MG TAB PO PRN (13:16)
--- NOTE | 2020-02-12 14:49 | Progress Note ---
Assessment and Plan Assessment and Plan --Persistent hypokalemia; potassium today 2.9 Spironolactone added Replenish with oral and IV KCl multiple doses Check urine sodium levels Nephrology Dr. Tamez following Closely monitor electrolytes Check magnesium --History of hypertension; moderate control Resume home antihypertensives, amlodipine, losartan Closely monitor blood pressures --Type 2 diabetes mellitus; Patient is on oral hypoglycemics Metformin and glipizide Accu-Cheks, sliding scale coverage, ADA diet Check A1c, resume oral hypoglycemics as needed --Obesity; BMI 39.5 Advised dietary modification, exercise as tolerated Weight reduction when medically stable Patient verbalized understanding --DVT prophylaxis; Lovenox Closely monitor the patient and adjust the management as needed Plan of care reviewed with the patient and his nurse Subjective Date of service: 02/12/20 Principal diagnosis: Hypokalemia Interval history: Brief history; Patient admitted with severe hypokalemia, probably thiazide induced continues to have persistent hypokalemia irrespective of multiple dose of replacement therapy Nephrology following, closely I have seen and examined the patient at the bedside today Patient continues to have persistent hypokalemia Patient has been receiving oral and IV KCl multiple doses However remains hypokalemic Nephrology following Patient has no new complaints Wants to go home Potassium 2.9 today Objective - Constitutional Vitals: Vital Signs - 12hr 02/12/20 02/12/20 02/12/20 04:09 07:40 10:00 Temperature 97.5 F L 98.0 F Pulse Rate 56 L 74 92 H Respiratory 18 18 Rate Blood Pressure 112/71 143/80 O2 Sat by Pulse 98 96 Oximetry 02/12/20 13:16 Temperature Pulse Rate Respiratory 20 Rate Blood Pressure O2 Sat by Pulse Oximetry General appearance: Present: no acute distress, well-nourished - EENT Eyes: PERRL, EOM intact ENT: hearing intact, clear oral mucosa Ears: bilateral: normal - Neck Neck: supple, normal ROM - Respiratory Respiratory effort: normal Respiratory: bilateral: CTA - Breasts Breasts: normal - Cardiovascular Heart rate: 78 Rhythm: regular Heart Sounds: Present: S1 & S2. Absent: gallop, rub Extremities: pulses intact, No edema, normal color, Full ROM - Gastrointestinal General gastrointestinal: Present: soft, non-tender, non-distended, normal bowel sounds - Genitourinary Male genitourinary: normal - Integumentary Integumentary: clear, warm, dry - Musculoskeletal Musculoskeletal: 1, strength equal bilaterally - Neurologic Neurologic: moves all extremities - Psychiatric Psychiatric: memory intact, appropriate mood/affect, intact judgment & insight - Labs CBC & Chem 7: 02/09/20 04:46 02/12/20 04:28 Labs: Abnormal lab results 02/11/20 02/11/20 02/11/20 Range/Units 16:10 19:04 21:26 Potassium 2.9 L* (3.6-5.0) mmol/L Carbon Dioxide (22-30) mmol/L BUN (9-20) mg/dL Creatinine (0.8-1.3) mg/dL Glucose (75-100) mg/dL POC Glucose 184 H 237 H (70-105) mg/dL Calcium (8.4-10.2) mg/dL 02/12/20 02/12/20 02/12/20 Range/Units 04:28 08:00 12:03 Potassium 2.9 L* (3.6-5.0) mmol/L Carbon Dioxide 32 H (22-30) mmol/L BUN 8 L (9-20) mg/dL Creatinine 0.6 L (0.8-1.3) mg/dL Glucose 141 H (75-100) mg/dL POC Glucose 159 H 216 H (70-105) mg/dL Calcium 8.1 L (8.4-10.2) mg/dL
[2020-02-12] MEDS ORDERED: POTASSIUM CHLORIDE 10 MEQ 10 MEQ/100 ML BAG IV SCH (16:00)
[2020-02-12] MEDS: ENOXAPARIN 40 MG/0.4 ML INJ SUB-Q SCH (22:25)
[2020-02-13 06:31] LABS: Blood Urea Nitrogen 9 mg/dL (9-20); Calcium 8.3 mg/dL (8.4-10.2); Hemolysis Index 12
[2020-02-13 06:32] LABS: BUN/Creatinine Ratio 15
[2020-02-13] MEDS: POTASSIUM CHLORIDE ER 20 MEQ TAB PO SCH (10:15)
[2020-02-13] MEDS: SPIRONOLACTONE 25 MG TAB PO SCH (10:15)
[2020-02-13] MEDS: INSULIN LISPRO 100 UNIT/ML VIAL 3 mL SUB-Q SCH ×4 (10:15→21:34)
--- NOTE | 2020-02-13 14:49 | Progress Note ---
Assessment and Plan Impression: * Hypokalemia -likely secondary to thiazide diuretic; rule out hyperaldosteronism vs Bartter syndrome vs Gitelman syndrome * Metabolic alkalosis * Hypomagnesemia * Hypertension * Type II diabetes mellitus Plan: * Potassium improved - 3.1 * Continue Aldactone - increase to 50mg BID as BP is uncontrolled and patient remains hypokalemic * Continue K supplement as needed * Await pending work up; Urine Ca is low - suggestive of Gitleman syndrome, however given hypertension, should r/o hyperaldosteronism * Await Mick:Renin * AM labs ordered * Hopefully can be discharged tomorrow * Follow up with [facility] upon discharge Subjective Date of service: 02/13/20 Principal diagnosis: Hypokalemia Interval history: Patient has no complaints Objective - Vital Signs Vital signs: Vital Signs - 12hr 02/13/20 02/13/20 02/13/20 04:36 07:53 12:00 Temperature 97.5 F L 97.9 F Pulse Rate 51 L 66 76 Respiratory 14 18 Rate Blood Pressure 160/82 136/86 O2 Sat by Pulse 99 99 Oximetry - General Appearance General appearance: well-developed, well-nourished EENT: ATNC Cardiology: regular, S1S2 Gastrointestinal: normal, no tenderness, no distended Integumentary: no rash, warm and dry Musculoskeletal: other (no edema) Psychiatric: cooperative - Lab 02/09/20 04:46 02/13/20 04:04 Most recent lab results Calcium 8.3 mg/dL (8.4-10.2) L 02/13/20 04:04 Magnesium 2.00 mg/dL (1.7-2.3) 02/12/20 04:28 Urine Creatinine 111.4 mg/dL (0.1-20.0) H 02/10/20 13:31 Medications & Allergies - Medications Allergies/Adverse Reactions: Allergies No Known Allergies Allergy (Unverified 12/22/19 04:07) Home Medications: Home Medications Medication Instructions Recorded Confirmed Last Taken Type amLODIPine 5 mg PO DAILY #30 tab 12/22/19 02/09/20 Unknown Rx Losartan [Cozaar] 100 mg PO QDAY 02/09/20 02/09/20 02/08/20 History Metformin HCl [metFORMIN] 1,000 mg PO BID 02/09/20 02/09/20 1 Day Ago History ~02/08/20 NIFEdipine XL [Procardia Xl] 60 mg PO Q12HR 02/09/20 02/09/20 02/08/20 History glipiZIDE 10 mg PO BID 02/09/20 02/09/20 02/08/20 History Active Medications: Generic Name Dose Route Start Last Admin Trade Name Freq PRN Reason Stop Dose Admin Acetaminophen 650 mg 02/08/20 23:53 02/12/20 13:16 Tylenol PO 650 mg Q4H PRN Administration Pain MILD(1-3)/Fever >100.5/IVEY Enoxaparin Sodium 40 mg 02/09/20 22:00 02/12/20 22:25 Enoxaparin SUB-Q 40 mg QDAY@2200 [facility] Administration Protocol Insulin Human Lispro 0 unit 02/09/20 08:30 02/13/20 12:32 Humalog SUB-Q 2 unit ACHS EDITH Administration Protocol Labetalol HCl 10 mg 02/11/20 16:18 02/11/20 16:31 Labetalol IV 10 mg Q4HR PRN Administration bp sys>155 vita>90 Magnesium Hydroxide 30 ml 02/08/20 23:53 Milk Of Magnesia PO Q4H PRN Constipation Ondansetron HCl 4 mg 02/08/20 23:53 Zofran IV Q8H PRN Nausea And Vomiting Potassium Chloride 40 meq 02/10/20 02:00 02/13/20 10:15 K-Dur PO 40 meq QDAY EDITH Administration Sodium Chloride 10 ml 02/09/20 10:00 02/13/20 10:15 Sodium Chloride Flush Syringe 10 Ml IV 10 ml BID EDITH Administration Sodium Chloride 10 ml 02/08/20 23:53 Sodium Chloride Flush Syringe 10 Ml IV PRN PRN LINE FLUSH Spironolactone 25 mg 02/11/20 22:00 02/13/20 10:15 Aldactone PO 25 mg BID EDITH Administration
--- NOTE | 2020-02-13 17:30 | Progress Note ---
Assessment and Plan Assessment and Plan --Persistent hypokalemia; potassium today 3.1 Spironolactone added Replenish with oral and IV KCl multiple doses Check urine sodium levels Nephrology Dr. Tamez following Closely monitor electrolytes Check magnesium Rule out Bartter syndrome and hyperaldosteronism --History of hypertension; moderate control Resume home antihypertensives, amlodipine, losartan Closely monitor blood pressures --Type 2 diabetes mellitus; Patient is on oral hypoglycemics Metformin and glipizide Accu-Cheks, sliding scale coverage, ADA diet Check A1c, resume oral hypoglycemics as needed --Obesity; BMI 39.5 Advised dietary modification, exercise as tolerated Weight reduction when medically stable Patient verbalized understanding --DVT prophylaxis; Lovenox Closely monitor the patient and adjust the management as needed Plan of care reviewed with the patient and his nurse Subjective Date of service: 02/13/20 Principal diagnosis: Hypokalemia Interval history: Brief history; Patient admitted with severe hypokalemia, probably thiazide induced continues to have persistent hypokalemia irrespective of multiple dose of replacement therapy Nephrology following, closely I have seen and examined the patient at the bedside today Patient continues to have persistent hypokalemia Patient has been receiving oral and IV KCl multiple doses However remains hypokalemic Nephrology following Patient has no new complaints Wants to go home Potassium 3.1 today Objective - Constitutional Vitals: Vital Signs - 12hr 02/13/20 02/13/20 02/13/20 07:53 11:28 12:00 Temperature 97.9 F 98.9 F Pulse Rate 66 61 76 Respiratory 18 18 Rate Blood Pressure 136/86 172/97 O2 Sat by Pulse 99 97 Oximetry General appearance: Present: no acute distress, well-nourished - EENT Eyes: PERRL, EOM intact ENT: hearing intact, clear oral mucosa Ears: bilateral: normal - Neck Neck: supple, normal ROM - Respiratory Respiratory effort: normal Respiratory: bilateral: CTA - Breasts Breasts: normal - Cardiovascular Heart rate: 78 Rhythm: regular Heart Sounds: Present: S1 & S2. Absent: gallop, rub Extremities: no ischemia, pulses intact, No edema, normal color, Full ROM - Gastrointestinal General gastrointestinal: Present: deferred, soft, non-tender, non-distended, normal bowel sounds - Genitourinary Male genitourinary: deferred, normal - Integumentary Integumentary: clear, warm, dry - Musculoskeletal Musculoskeletal: 1, strength equal bilaterally - Neurologic Neurologic: moves all extremities - Psychiatric Psychiatric: memory intact, appropriate mood/affect, intact judgment & insight - Labs CBC & Chem 7: 02/09/20 04:46 02/13/20 04:04 Labs: Abnormal lab results 02/12/20 02/13/20 02/13/20 Range/Units 21:20 04:04 08:07 Potassium 3.1 L (3.6-5.0) mmol/L Carbon Dioxide 32 H (22-30) mmol/L Creatinine 0.6 L (0.8-1.3) mg/dL Glucose 131 H (75-100) mg/dL POC Glucose 180 H 152 H (70-105) mg/dL Calcium 8.3 L (8.4-10.2) mg/dL 02/13/20 02/13/20 Range/Units 11:43 16:42 Potassium (3.6-5.0) mmol/L Carbon Dioxide (22-30) mmol/L Creatinine (0.8-1.3) mg/dL Glucose (75-100) mg/dL POC Glucose 176 H 142 H (70-105) mg/dL Calcium (8.4-10.2) mg/dL
[2020-02-13] MEDS ORDERED: POTASSIUM CHLORIDE ER 20 MEQ TAB PO ONE (18:31)
[2020-02-13] MEDS: SPIRONOLACTONE 50 MG TAB PO SCH (21:33)
[2020-02-13] MEDS: ENOXAPARIN 40 MG/0.4 ML INJ SUB-Q SCH (21:34)
[2020-02-14 06:37] LABS: BUN/Creatinine Ratio 16; Blood Urea Nitrogen 11 mg/dL (9-20); Calcium 8.5 mg/dL (8.4-10.2); Hemolysis Index 7
[2020-02-14] MEDS: INSULIN LISPRO 100 UNIT/ML VIAL 3 mL SUB-Q SCH ×3 (07:55→16:32)
[2020-02-14 08:07] VITALS: BP 149/89
--- NOTE | 2020-02-14 10:18 | Progress Note ---
Assessment and Plan Impression: * Hypokalemia -likely secondary to thiazide diuretic; rule out hyperaldosteronism vs Bartter syndrome vs Gitelman syndrome * Metabolic alkalosis * Hypomagnesemia * Hypertension * Type II diabetes mellitus Plan: * Potassium improved - 3.2, give kcl bid * Continue Aldactone - 50mg BID as BP is uncontrolled and patient remains hypok alemic * Continue K supplement as needed * replete mag prn * Await pending work up; Urine Ca is low - suggestive of Gitleman syndrome, however given hypertension, should r/o hyperaldosteronism * Await Mick:Renin * AM labs ordered * Follow up with SCN upon discharge, ok to dc once k is 3.5 Subjective Date of service: 02/14/20 Principal diagnosis: Hypokalemia Interval history: resting well in bed today Objective - Exam Narrative Exam: General appearance: well-developed, well-nourished EENT: ATNC Cardiology: regular, S1S2 Gastrointestinal: normal, no tenderness, no distended Integumentary: no rash, warm and dry Musculoskeletal: other (no edema) Psychiatric: cooperative - Vital Signs Vital signs: Vital Signs - 12hr 02/13/20 02/14/20 02/14/20 23:25 00:00 04:01 Temperature 97.6 F 97.5 F L Pulse Rate 56 L 69 59 L Respiratory 14 14 Rate Blood Pressure 144/84 156/87 O2 Sat by Pulse 97 98 Oximetry 02/14/20 07:24 Temperature 97.8 F Pulse Rate 67 Respiratory 18 Rate Blood Pressure 149/89 O2 Sat by Pulse 97 Oximetry - Lab 02/09/20 04:46 02/14/20 04:10 Most recent lab results Calcium 8.5 mg/dL (8.4-10.2) 02/14/20 04:10 Magnesium 2.00 mg/dL (1.7-2.3) 02/12/20 04:28 Urine Creatinine 111.4 mg/dL (0.1-20.0) H 02/10/20 13:31 Medications & Allergies - Medications Allergies/Adverse Reactions: Allergies No Known Allergies Allergy (Unverified 12/22/19 04:07) Home Medications: Home Medications Medication Instructions Recorded Confirmed Last Taken Type amLODIPine 5 mg PO DAILY #30 tab 12/22/19 02/09/20 Unknown Rx Losartan [Cozaar] 100 mg PO QDAY 02/09/20 02/09/20 02/08/20 History Metformin HCl [metFORMIN] 1,000 mg PO BID 02/09/20 02/09/20 1 Day Ago History ~02/08/20 NIFEdipine XL [Procardia Xl] 60 mg PO Q12HR 02/09/20 02/09/20 02/08/20 History glipiZIDE 10 mg PO BID 02/09/20 02/09/20 02/08/20 History Active Medications: Generic Name Dose Route Start Last Admin Trade Name Freq PRN Reason Stop Dose Admin Acetaminophen 650 mg 02/08/20 23:53 02/12/20 13:16 Tylenol PO 650 mg Q4H PRN Administration Pain MILD(1-3)/Fever >100.5/IVEY Enoxaparin Sodium 40 mg 02/09/20 22:00 02/13/20 21:34 Enoxaparin SUB-Q 40 mg QDAY@2200 [facility] Administration Protocol Insulin Human Lispro 0 unit 02/09/20 08:30 02/14/20 07:55 Humalog SUB-Q Not Given [facility] Protocol Labetalol HCl 10 mg 02/11/20 16:18 02/11/20 16:31 Labetalol IV 10 mg Q4HR PRN Administration bp sys>155 vita>90 Magnesium Hydroxide 30 ml 02/08/20 23:53 Milk Of Magnesia PO Q4H PRN Constipation Ondansetron HCl 4 mg 02/08/20 23:53 Zofran IV Q8H PRN Nausea And Vomiting Potassium Chloride 40 meq 02/10/20 02:00 02/13/20 10:15 K-Dur PO 40 meq QDAY [facility] Administration Sodium Chloride 10 ml 02/09/20 10:00 02/13/20 21:34 Sodium Chloride Flush Syringe 10 Ml IV 10 ml BID EDITH Administration Sodium Chloride 10 ml 02/08/20 23:53 Sodium Chloride Flush Syringe 10 Ml IV PRN PRN LINE FLUSH Spironolactone 50 mg 02/13/20 22:00 02/13/20 21:33 Aldactone PO 50 mg BID EDITH Administration
[2020-02-14] MEDS: SPIRONOLACTONE 50 MG TAB PO SCH (10:31)
[2020-02-14] MEDS ORDERED: POTASSIUM CHLORIDE ER 20 MEQ TAB PO SCH (11:00)
--- NOTE | 2020-02-14 15:37 | Discharge Summary ---
Providers - Providers Date of Admission: 02/10/20 15:21 Date of discharge: 02/14/20 Attending physician: LUL VALLEJO 02/10/20 08:41 Consult to Physician [CONS] Routine Comment: Consulting Provider: EUGENIA RDZ Physician Instructions: Reason For Exam: Persistent hypokalemia Primary care physician: [employer] Hospitalization Condition: Stable Hospital course: Subjective Date of service: 02/14/20 Principal diagnosis: Hypokalemia Interval history: Brief history; Patient admitted with severe hypokalemia, probably thiazide induced continues to have persistent hypokalemia irrespective of multiple dose of replacement therapy Nephrology following, closely I have seen and examined the patient at the bedside today Patient continues to have persistent hypokalemia Patient has been receiving oral and IV KCl multiple doses However remains hypokalemic Nephrology following Patient has no new complaints Wants to go home Potassium 3.2 today Supplemented with 80 mEq of potassium 40 in the morning and 40 now Assessment and Plan --Persistent hypokalemia; potassium today 3.1 Spironolactone added Replenish with oral and IV KCl multiple doses Check urine sodium levels Nephrology Dr. Tamez following Closely monitor electrolytes Check magnesium Rule out Bartter syndrome and hyperaldosteronism Work-up as outpatient --History of hypertension; moderate control Resume home antihypertensives, amlodipine, losartan Closely monitor blood pressures We will discharge today --Type 2 diabetes mellitus; Patient is on oral hypoglycemics Metformin and glipizide Accu-Cheks, sliding scale coverage, ADA diet Check A1c, resume oral hypoglycemics as needed --Obesity; BMI 39.5 Advised dietary modification, exercise as tolerated Weight reduction when medically stable Patient verbalized understanding --DVT prophylaxis; Lovenox Closely monitor the patient and adjust the management as needed Plan of care reviewed with the patient and his nurse Disposition: DC-01 TO HOME OR SELFCARE Time spent for discharge: 32 minutes - Discharge Diagnoses (1) Acute hypokalemia Status: Acute (2) DVT prophylaxis Status: Acute (3) Hypertension Status: Acute Core Measure Documentation - Palliative Care Palliative Care/ Comfort Measures: Not Applicable - Core Measures Any of the following diagnoses?: none Exam - Constitutional Vitals: Temp Pulse Resp BP Pulse Ox 97.8 F 59 L 18 149/89 97 02/14/20 07:24 02/14/20 12:00 02/14/20 10:00 02/14/20 10:31 02/14/20 10:00 General appearance: Present: no acute distress, well-nourished - EENT Eyes: Present: PERRL ENT: hearing intact, clear oral mucosa - Neck Neck: Present: supple, normal ROM - Respiratory Respiratory effort: normal Respiratory: bilateral: CTA - Cardiovascular Heart rate: 78 Rhythm: regular Heart Sounds: Present: S1 & S2. Absent: rub, click - Extremities Extremities: pulses symmetrical, No edema Peripheral Pulses: within normal limits - Abdominal General gastrointestinal: Present: soft, non-tender, non-distended, normal bowel sounds Male genitourinary: Present: normal - Integumentary Integumentary: Present: clear, warm, dry - Musculoskeletal Musculoskeletal: gait normal, strength equal bilaterally - Psychiatric Psychiatric: appropriate mood/affect, intact judgment & insight - Neurologic Neurologic: CNII-XII intact, moves all extremities - Allied Health Allied health notes reviewed: nursing, case management Plan Activity: no restrictions Diet: diabetic Special Instructions: smoking cessation, no heavy lifting Follow up with: PRIMARY CARE, [Primary Care Provider] - 3-5 Days
[2020-02-17 14:55] LABS: Aldo/Plasma Renin Act Ratio 95.2 Ratio (0.9-28.9)
== END 2020-02-14 17:24 | disposition home or self-care (01) | DRG 641 ==
LOC: ED 14:39 → 4A 23:53 → OBSVTOIN 02-10 15:21
PROVIDERS: ADMIT Internal Medicine Geriatric Medicine; ATTEND Internal Medicine
DX: E87.6 Hypokalemia (principal); I10 Essential (primary) hypertension; E11.9 Type 2 diabetes mellitus without complications; E83.42 Hypomagnesemia; E87.3 Alkalosis; E26.81 Bartter's syndrome; E26.9 Hyperaldosteronism, unspecified; T50.2X5A Adverse effect of carbonic-anhydrase inhibitors, benzothiadiazides and other diuretics, initial encounter; E66.9 Obesity, unspecified; Z68.39 Body mass index [BMI] 39.0-39.9, adult; Z71.3 Dietary counseling and surveillance; Z79.899 Other long term (current) drug therapy; Z79.84 Long term (current) use of oral hypoglycemic drugs; Y92.098 Other place in other non-institutional residence as the place of occurrence of the external cause
CPT/HCPCS: 36415; 80048; 80061; 80076; 82088; 82340; 82436; 82570; 82962; 83036; 83735; 84132; 84133; 85007; 85025; 85610; 90686; 93005; 96372; G0378; J1650; J3475; J3480; J7040

== ENCOUNTER 2020-02-29 10:10 | Outpatient (CLI) | payer OTHER ==
[2020-02-29 10:41] LABS: Hemoglobin 14.7 gm/dl (11.8-15.2); Mean Corpuscular HGB Conc 34 % (32-34); Mean Corpuscular Volume 96 fl (84-94); Platelet Count 325 K/mm3 (140-440); Red Cell Distribution Width 13.9 % (13.2-15.2)
[2020-02-29 11:00] LABS: Albumin 4.7 g/dL (3.9-5); BUN/Creatinine Ratio 21; Blood Urea Nitrogen 17 mg/dL (9-20); Calcium 9.9 mg/dL (8.4-10.2); Hemolysis Index 14
== END 2020-02-29 10:11 | disposition home or self-care (01) ==
LOC: LAB 10:10
PROVIDERS: ATTEND Internal Medicine Nephrology
DX: R94.4 Abnormal results of kidney function studies (principal)
CPT/HCPCS: 36415; 80048; 82040; 84100; 85027

== ENCOUNTER 2020-05-10 09:12 | Outpatient (CLI) | payer OTHER ==
[2020-05-10 10:12] LABS: Basophils # (Auto) 0.2 K/mm3 (0.0-0.1); Basophils % (Auto) 2.9 % (0.0-1.8); Eosinophils # (Auto) 0.3 K/mm3 (0.0-0.4); Eosinophils % (Auto) 4.3 % (0.0-4.3); Hematocrit 39.2 % (35.5-45.6); Hemoglobin 13.2 gm/dl (11.8-15.2); Lymphocytes # (Auto) 1.9 K/mm3 (1.2-5.4); Mean Corpuscular HGB Conc 34 % (32-34); Mean Corpuscular Volume 97 fl (84-94); Monocytes # (Auto) 0.4 K/mm3 (0.0-0.8); Monocytes % (Auto) 6.4 % (0.0-7.3); Platelet Count 332 K/mm3 (140-440); Red Blood Count 4.02 M/mm3 (3.65-5.03); Red Cell Distribution Width 15.8 % (13.2-15.2)
[2020-05-10 10:26] LABS: Albumin 4.5 g/dL (3.9-5); Blood Urea Nitrogen 13 mg/dL (9-20); Calcium 9.3 mg/dL (8.4-10.2); Hemolysis Index 8
[2020-05-10 10:30] LABS: BUN/Creatinine Ratio 19
== END 2020-05-10 09:13 | disposition home or self-care (01) ==
LOC: LAB 09:12
PROVIDERS: ATTEND Internal Medicine Nephrology
DX: R94.4 Abnormal results of kidney function studies (principal)
CPT/HCPCS: 36415; 80048; 82040; 84100; 85025

== ENCOUNTER 2021-01-26 22:07 | Emergency (ER) | payer OTHER ==
[2021-01-26 22:32] VITALS: BP 137/84
[2021-01-26] MEDS ORDERED: ACETAMINOPHEN 500 MG TAB PO ONE (22:32)
[2021-01-26] MEDS ORDERED: IBUPROFEN 600 MG TAB PO ONE (22:32)
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
== END 2021-01-27 01:45 | disposition home or self-care (01) ==
LOC: ED 22:07
DX: S16.1XXA Strain of muscle, fascia and tendon at neck level, initial encounter (principal); M62.830 Muscle spasm of back; I10 Essential (primary) hypertension; E11.8 Type 2 diabetes mellitus with unspecified complications; V89.2XXA Person injured in unspecified motor-vehicle accident, traffic, initial encounter; Y93.89 Activity, other specified; Y92.89 Other specified places as the place of occurrence of the external cause; Y99.8 Other external cause status
CPT/HCPCS: 72040; 99283